=== PATIENT | female | born 1995 | race Caucasian/White ===

== ENCOUNTER 2020-02-15 15:05 | Emergency (ER) | payer BC, OTHER ==
[~2020-02-15] VITALS: Ht 165.1 cm; Wt 47.6 kg
[2020-02-15] MEDS ORDERED: NEOMY/BACITRA/POLYMYXIN B OINT UD PACKET TP ONE ×2 (16:12→16:15)
--- NOTE | 2020-02-15 16:14 | NUR ---
Patient discharged to home in stable condition. Written and verbal after care instructions given. Patient verbalizes understanding of instructions. Stressed follow up or return to ER for worsening s/s.
== END 2020-02-15 16:15 | disposition home or self-care (01) ==
LOC: ER 15:05
DX: S01.411A Laceration without foreign body of right cheek and temporomandibular area, initial encounter (principal); W45.8XXA Other foreign body or object entering through skin, initial encounter; Y93.11 Activity, swimming; Y92.016 Swimming-pool in single-family (private) house or garden as the place of occurrence of the external cause
CPT/HCPCS: A4663